=== PATIENT | female | born 1950 | race Caucasian/White ===

== ENCOUNTER 2022-02-19 00:16 | Inpatient (IN) | payer MEDICARE, OTHER ==
[~2022-02-19] VITALS: Ht 154.9 cm; Wt 51.7 kg
[2022-02-19] MEDS ORDERED: MEMA10TA PO ×2 (01:13→17:51)
[2022-02-19] MEDS ORDERED: QUET50TA PO (01:13)
[2022-02-19] MEDS ORDERED: LEVO75TA7 PO (01:13)
[2022-02-19] MEDS ORDERED: ACET-2154 PO (01:13)
[2022-02-19] MEDS ORDERED: DONE10TA44 PO (01:13)
[2022-02-19] MEDS ORDERED: ATOR80TA PO (01:13)
[2022-02-19] MEDS ORDERED: ACET-73 PO (01:13)
--- NOTE | 2022-02-19 01:30 | NUR ---
Medically cleared by DR Ward.
[2022-02-19 01:41] LABS: HEMATOCRIT 37.2 % (31.2-41.9); MEAN CORPUSCULAR HEMOGLOBIN 31.4 uug (24.7-32.8); MEAN CORPUSCULAR VOLUME 92.3 fL (75.5-95.3); PLATELET COUNT (AUTO) 300 K/uL (179-408)
--- NOTE | 2022-02-19 01:50 | NUR ---
pt taken to CT
[2022-02-19 02:01] LABS: ETHANOL < 3 MG/DL (0-0)
--- NOTE | 2022-02-19 02:02 | NUR ---
pt returned from CT
[2022-02-19 02:09] LABS: CARBON DIOXIDE 26 mmol/L (21-32); CHLORIDE 110 mmol/L (98-107); CREATININE 1.1 mg/dL (0.6-1.3); GLUCOSE 92 mg/dL (74-106); POTASSIUM 3.5 mmol/L (3.5-5.1); UREA NITROGEN, BLOOD 17 mg/dL (7-18)
[2022-02-19 02:11] LABS: THYROID STIMULATING HORMONE 5.125 mIU/mL (0.358-3.740)
[2022-02-19 02:25] LABS: ACETAMINOPHEN 10.1 ug/mL (10-30); ALANINE AMINOTRANSFERASE 18 U/L (14-59); ALKALINE PHOSPHATASE 61 U/L (50-136); ASPARTATE AMINOTRANSFERASE 23 U/L (15-37); BILIRUBIN,DIRECT 0.2 mg/dL (0.0-0.2); BILIRUBIN,TOTAL 0.6 mg/dL (0.2-1.0); TOTAL PROTEIN, SERUM 6.6 g/dL (6.4-8.2)
[2022-02-19 02:57] LABS: *BILIRUBIN,URIN 2+ (NEGATIVE); *BLOOD, URINE 3+ (NEGATIVE); *CLARITY,URINE CLOUDY (CLEAR); *COLOR,URINE YELLOW (YELLOW); *KETONES,URINE 1+ (NEGATIVE); *UROBILINOGEN,URINE 0.2 E.U./dl (NORMAL); LEUKOCYTE ESTERASE ,URINE NEGATIVE (NEGATIVE); NITRITE, URINE NEGATIVE (NEGATIVE); PH,URINE 5.5 (5.0-8.0); UGLUCOSE NEGATIVE (NEGATIVE)
--- NOTE | 2022-02-19 03:02 | NUR ---
Gilbert from PET TEAM placed patient on 5150 hold.
[2022-02-19 03:04] LABS: BACTERIA,URINE FEW /HPF (NONE SEEN); RBC,URINE TNTC /HPF (0-3); SQUAMOUS EPITHELIAL CELL,UR MODERATE /HPF (NONE SEEN)
[2022-02-19 03:10] LABS: *AMPHETAMINE, URINE POSITIVE (NEGATIVE); *CANNABINOID, URINE NEGATIVE (NEGATIVE); *COCCAINE, URINE NEGATIVE (NEGATIVE); *OPIATE, URINE NEGATIVE (NEGATIVE); *PHENCYCLIDINE SCREEN,URINE NEGATIVE (NEGATIVE)
--- NOTE | 2022-02-19 03:50 | NUR ---
Transfered to [facility] via gurny with no distress noted.
[2022-02-19 04:18] VITALS: BP 105/53
[2022-02-19] MEDS ORDERED: MAG HYDROX/AL HYDROX/SIMETH 30 ML LIQUID UDC PO PRN (04:30)
[2022-02-19] MEDS ORDERED: MAGNESIUM HYDROXIDE 30 ML LIQUID UDC PO PRN (04:30)
--- NOTE | 2022-02-19 05:00 | NUR ---
Admitted approx one hour earlier 71 years old female from [facility] on a 5150 for GD and DTO. according to the hold, patient was aggressive and striking at staff and residents. She is confused and she keeps repeating information and asking same question all over again. she thinks that she is in the baseman of her home. Her hold will on 02/22/22 at 0249. Upon admission, patient was noted A/O x 1. calm and cooperative with admission process except for she refused to sign the paper because she was too tired. she is able to ambulate with steady gait and able to make her needs known. patient was given her advisement and was advise of her hold. Patient does not recall why she is here. she was also given the booklet of patient's right for mental health facilities. Patient is under the care of dr Thompson. Patient was advise of unit rules. Dr Crawley was notified of the admission and to reconciled her medications. will continue to monitor Q15 min checks.
[2022-02-19] MEDS: LEVOTHYROXINE SODIUM 75 MCG TABLET PO SCH (07:28)
[2022-02-19 07:30] VITALS: BP 94/55
[2022-02-19] MEDS ORDERED: ACETAMINOPHEN 325 MG TABLET-SA PATIENTS-PAIN ONLY PO PRN (07:30)
--- NOTE | 2022-02-19 09:00 | NUR ---
UA result relayed to .
[2022-02-19] MEDS: DIVALPROEX SPRINKLE 125 MG CAP.SPRINK PO SCH ×3 (11:16→16:47)
[2022-02-19] MEDS ORDERED: FLUOXETINE HCL 10 MG CAPSULE PO SCH ×2 (13:00→14:00)
[2022-02-19 15:08] VITALS: BP 98/60
[2022-02-19] MEDS: ACETAMINOPHEN 325 MG TABLET PO PRN (17:32)
--- NOTE | 2022-02-19 17:48 | NUR ---
patient is AAO x1 to herself with poor impulse control at times, gets easily irritable when redirected, argumentative at times, paranoid behavior and pressure speech .compliant with all po medication, unable to formulate a viable plan for self care, continue to monitor for safety, continue with treatment plan.
[2022-02-19] MEDS ORDERED: ASPI81TA31 PO (17:49)
[2022-02-19] MEDS ORDERED: ROSU20TA2 PO (17:49)
[2022-02-19] MEDS ORDERED: POTA-194 PO (17:49)
[2022-02-19] MEDS: ATORVASTATIN 40 MG TABLET PO SCH (20:12)
[2022-02-19] MEDS ORDERED: ATORVASTATIN 40 MG TABLET PO SCH ×2 (21:00)
[2022-02-19] MEDS ORDERED: risperiDONE 0.25 MG TABLET PO SCH (21:00)
[2022-02-19] MEDS ORDERED: Medication Not On Formulary EA (Atorvastatin Calcium (Lipitor) 80 MG) PO SCH (21:00)
[2022-02-19] MEDS: TEMAZEPAM 7.5 MG CAPSULE PO PRN (21:12)
[2022-02-19 21:25] VITALS: BP 105/53
--- NOTE | 2022-02-20 03:46 | NUR ---
Received patient in bed. Awake and alert, but forgetful and paranoid. Angry and unable to engage in a meaningful conversation. The patient is condescending and argumentative over the littlest things. Safety Stratiges are in place and reorientation is ongoing.
[2022-02-20] MEDS: LEVOTHYROXINE SODIUM 75 MCG TABLET PO SCH (06:08)
[2022-02-20 07:30] VITALS: BP 111/57
[2022-02-20] MEDS: POTASSIUM CHLORIDE 20 MEQ POWDER PACKET PO SCH (08:46)
[2022-02-20] MEDS: LORAZEPAM 0.5 MG TABLET PO PRN (08:46)
[2022-02-20] MEDS: DIVALPROEX SPRINKLE 125 MG CAP.SPRINK PO SCH ×3 (08:46→16:28)
[2022-02-20] MEDS: ASPIRIN 81 MG TAB.CHEW PO SCH (08:46)
[2022-02-20] MEDS: risperiDONE 0.25 MG TABLET PO SCH ×2 (09:15→16:28)
--- NOTE | 2022-02-20 14:49 | NUR ---
HANH Initial Discharge Note: Pt's current residence is at [address] [address] ([phone]). Per Yancy ([phone]), the facility stated pt cannot stay at their facility under her current condition. HANH will continue to stay in Contact with Zulma and Rubi at the facility regarding pt's return upon discharge. Yancy stated she is agreeable to an alternative chcf facility or memory care for the pt's continuation of care upon discharge. HANH will continue to work with pt, family and MD to ensure a safe and proper discharge plan.
--- NOTE | 2022-02-20 16:07 | NUR ---
received patient is AAO x1 to herself with poor impulse control at times, gets easily irritable when redirected, argumentative at times, paranoid behavior and pressure speech .compliant with all po medication, refused breakfast and lunch .unable to formulate a viable plan for self care, continue to monitor for safety, continue with treatment plan.
[2022-02-20] MEDS: ACETAMINOPHEN 325 MG TABLET PO PRN (16:29)
[2022-02-20 16:48] VITALS: BP 124/57
[2022-02-20] MEDS: ATORVASTATIN 40 MG TABLET PO SCH (20:20)
[2022-02-21] MEDS: LORAZEPAM 0.5 MG TABLET PO PRN (05:51)
--- NOTE | 2022-02-21 06:00 | NUR ---
GPS NOTES: Received patient in her room, awake, A&Ox1. Patient is angry and yelling at everybody that approached her. Very paranoid, delusional and accusatory. Patient is non-directable, non-compliant with medication with the medical technical writer. Defiant with care. Pose threat to others by striking when attempt to provide her care. Incontinent and needs assistance with ADL's. Bed bath provided. Patient kept clean and dry. Offered fluids and snacks. Frequenrt monitoring observed, safety measures in place at all times.
[2022-02-21] MEDS: LEVOTHYROXINE SODIUM 75 MCG TABLET PO SCH (06:08)
[2022-02-21 07:01] VITALS: BP 137/84
[2022-02-21] MEDS: DIVALPROEX SPRINKLE 125 MG CAP.SPRINK PO SCH ×3 (08:14→16:21)
[2022-02-21] MEDS: ASPIRIN 81 MG TAB.CHEW PO SCH (08:14)
[2022-02-21] MEDS: POTASSIUM CHLORIDE 20 MEQ POWDER PACKET PO SCH (08:14)
[2022-02-21] MEDS: risperiDONE 0.25 MG TABLET PO SCH ×2 (08:15→16:21)
[2022-02-21 16:59] VITALS: BP 98/43
[2022-02-21] MEDS: ATORVASTATIN 40 MG TABLET PO SCH (20:04)
[2022-02-21] MEDS: TEMAZEPAM 7.5 MG CAPSULE PO PRN (20:04)
[2022-02-21 20:26] VITALS: BP 122/61
[2022-02-22] MEDS: LEVOTHYROXINE SODIUM 75 MCG TABLET PO SCH (06:09)
[2022-02-22 07:45] VITALS: BP 100/48
[2022-02-22] MEDS: ASPIRIN 81 MG TAB.CHEW PO SCH (08:23)
[2022-02-22] MEDS: POTASSIUM CHLORIDE 20 MEQ POWDER PACKET PO SCH (08:23)
[2022-02-22] MEDS: DIVALPROEX SPRINKLE 125 MG CAP.SPRINK PO SCH ×3 (08:24→16:56)
[2022-02-22] MEDS: risperiDONE 0.25 MG TABLET PO SCH ×2 (08:24→17:00)
[2022-02-22] MEDS: ENSURE ENLIVE (VAN) 240 ML LIQUID PO SCH ×2 (12:19→17:01)
[2022-02-22 15:29] VITALS: BP 116/59
--- NOTE | 2022-02-22 16:10 | NUR ---
received patient is confused and disoriented to herself with poor impulse control at times, gets easily irritable when redirected, argumentative at times, paranoid behavior and pressure speech .compliant with all po medication, refused breakfast and lunch . visited by son at bedside encouraged for po intake .unable to formulate a viable plan for self care, continue to monitor for safety, continue with treatment plan.
[2022-02-22 19:33] VITALS: BP 100/46
[2022-02-22] MEDS: ATORVASTATIN 40 MG TABLET PO SCH (21:31)
[2022-02-22] MEDS: TEMAZEPAM 7.5 MG CAPSULE PO PRN (23:01)
--- NOTE | 2022-02-23 00:45 | NUR ---
GPS: Pt.is asleep at this time during rounds. Remains confused,disoriented,paranoid and suspicious. Took bedtime med.earlier with little persuasion from staff. Poor insight to present situation. No combative behavior noted. Encouraged to fully cooperate with staff providing care. Fall precautions observed.
[2022-02-23] MEDS: LORAZEPAM 0.5 MG TABLET PO PRN ×2 (01:19→20:33)
[2022-02-23] MEDS ORDERED: REMEDY ESSENTIAL ZINC PASTE 113 GM TOP PRN (05:00)
[2022-02-23] MEDS: LEVOTHYROXINE SODIUM 75 MCG TABLET PO SCH (06:19)
[2022-02-23 07:33] VITALS: BP 109/50
[2022-02-23] MEDS: risperiDONE 0.25 MG TABLET PO SCH ×2 (08:24→17:03)
[2022-02-23] MEDS: POTASSIUM CHLORIDE 20 MEQ TAB.PRT.SR PO SCH (08:26)
[2022-02-23] MEDS: DIVALPROEX SPRINKLE 125 MG CAP.SPRINK PO SCH ×3 (08:29→17:03)
[2022-02-23] MEDS: ASPIRIN 81 MG TAB.CHEW PO SCH (08:29)
[2022-02-23] MEDS: ENSURE ENLIVE (VAN) 240 ML LIQUID PO SCH ×3 (08:30→17:04)
[2022-02-23 09:46] LABS: HEMATOCRIT 43.8 % (31.2-41.9); MEAN CORPUSCULAR HEMOGLOBIN 31.3 uug (24.7-32.8); MEAN CORPUSCULAR VOLUME 98.7 fL (75.5-95.3); PLATELET COUNT (AUTO) 185 K/uL (179-408)
[2022-02-23 10:01] LABS: BILIRUBIN,TOTAL 0.7 mg/dL (0.2-1.0); CREATININE 0.8 mg/dL (0.6-1.3); MAGNESIUM 2.3 mg/dL (1.8-2.4); POTASSIUM 3.2 mmol/L (3.5-5.1); TOTAL PROTEIN, SERUM 6.7 g/dL (6.4-8.2)
[2022-02-23 15:49] VITALS: BP 116/67
[2022-02-23] MEDS: ATORVASTATIN 40 MG TABLET PO SCH (20:28)
[2022-02-23 22:09] VITALS: BP 117/61
[2022-02-24] MEDS: LEVOTHYROXINE SODIUM 75 MCG TABLET PO SCH (06:11)
[2022-02-24 08:00] VITALS: BP 109/44
[2022-02-24] MEDS: ASPIRIN 81 MG TAB.CHEW PO SCH (09:00)
[2022-02-24] MEDS: risperiDONE 0.25 MG TABLET PO SCH ×2 (09:01→16:58)
[2022-02-24] MEDS: POTASSIUM CHLORIDE 20 MEQ TAB.PRT.SR PO SCH (09:01)
[2022-02-24] MEDS: DIVALPROEX SPRINKLE 125 MG CAP.SPRINK PO SCH ×3 (09:01→17:01)
[2022-02-24] MEDS: ENSURE ENLIVE (VAN) 240 ML LIQUID PO SCH ×3 (09:02→18:00)
--- NOTE | 2022-02-24 09:38 | NUR ---
HANH Discharge Update: HANH contacted Zulma ([phone]) [place] [address] ([phone]) who stated that she will contact this account underwriter after speaking to the DON with an update for the patient's return. Per pt's daughter, Yancy ([phone]), she is agreeable for the pt to return to a snf facility per Dr. Thompson and HANH's referral.
--- NOTE | 2022-02-24 15:02 | NUR ---
Receive patient sleeping in her room. A/O X 2 to person. Pt. is depressed, withdrawn, does not engage in verbal approach, uncooperative with nursing care at times, compliant with medications. "Please close all blinds and don't turn on the lights" Requires total care. Pt. is encourage to vent feelings and emotions. Fall and safety precautions implemented.
[2022-02-24 16:00] VITALS: BP 109/51
[2022-02-24 20:04] VITALS: BP 111/66
[2022-02-24] MEDS: ATORVASTATIN 40 MG TABLET PO SCH (20:06)
[2022-02-24] MEDS: TEMAZEPAM 7.5 MG CAPSULE PO PRN (20:06)
--- NOTE | 2022-02-25 05:24 | NUR ---
Slept 7.0 hours today. Calm and cooperative. No complaint presented. Remain on bed all the time. Made comfortable.
[2022-02-25] MEDS: LEVOTHYROXINE SODIUM 75 MCG TABLET PO SCH (05:44)
[2022-02-25 07:30] VITALS: BP 106/48
[2022-02-25] MEDS: ASPIRIN 81 MG TAB.CHEW PO SCH (08:55)
[2022-02-25] MEDS: DIVALPROEX SPRINKLE 125 MG CAP.SPRINK PO SCH ×3 (08:57→17:00)
[2022-02-25] MEDS: POTASSIUM CHLORIDE 20 MEQ TAB.PRT.SR PO SCH (08:57)
[2022-02-25] MEDS: risperiDONE 0.25 MG TABLET PO SCH ×2 (08:57→12:35)
[2022-02-25] MEDS: ENSURE ENLIVE (VAN) 240 ML LIQUID PO SCH ×3 (08:58→17:25)
--- NOTE | 2022-02-25 13:15 | NUR ---
Dr. Thompson was notified about patient's Valproic Acid level of 101 today at 13:03. ordered Depakote 125 mg PO once for 17:00 schedule medication, which is half of patient's normal dose.
--- NOTE | 2022-02-25 15:28 | NUR ---
Receive patient sleeping in her room. A/O X 1 to person. Pt. is argumentative, suspicious, accusatory "Why are you doing this to me?" "You are hurting me, stop!" "Don't help me, I don't need you!". Patient does not engage in conversations or group activities. Emotional support provided. Fall and safety precautions implemented.
[2022-02-25 16:00] VITALS: BP 103/55
[2022-02-25] MEDS ORDERED: DIVALPROEX 125 MG TABLET.DR PO ONE (17:00)
[2022-02-25] MEDS: risperiDONE 0.5 MG TABLET PO SCH (17:24)
[2022-02-25 20:04] VITALS: BP 103/52
[2022-02-25] MEDS: ATORVASTATIN 40 MG TABLET PO SCH (20:46)
[2022-02-25] MEDS: LORAZEPAM 0.5 MG TABLET PO PRN (20:46)
[2022-02-26] MEDS: LEVOTHYROXINE SODIUM 75 MCG TABLET PO SCH (06:17)
[2022-02-26 07:30] VITALS: BP 110/46
[2022-02-26] MEDS: POTASSIUM CHLORIDE 20 MEQ TAB.PRT.SR PO SCH (08:27)
[2022-02-26] MEDS: risperiDONE 0.25 MG TABLET PO SCH (08:27)
[2022-02-26] MEDS: DIVALPROEX SPRINKLE 125 MG CAP.SPRINK PO SCH (08:28)
[2022-02-26] MEDS: ASPIRIN 81 MG TAB.CHEW PO SCH (08:29)
[2022-02-26] MEDS: ENSURE ENLIVE (VAN) 240 ML LIQUID PO SCH ×3 (08:29→17:41)
[2022-02-26] MEDS: risperiDONE 0.5 MG TABLET PO SCH ×2 (12:23→17:41)
[2022-02-26] MEDS ORDERED: risperiDONE 0.25 MG TABLET PO SCH (13:00)
--- NOTE | 2022-02-26 13:47 | NUR ---
Dr. Thompson was informed at 13:03 about critical lab of 127 Valproic Acid for this patient, and decided to DC all Depakote orders.
[2022-02-26 15:12] LABS: HEMATOCRIT 45.4 % (31.2-41.9); MEAN CORPUSCULAR HEMOGLOBIN 31.3 uug (24.7-32.8); MEAN CORPUSCULAR VOLUME 95.2 fL (75.5-95.3); PLATELET COUNT (AUTO) 340 K/uL (179-408)
[2022-02-26 15:15] LABS: CARBON DIOXIDE 26 mmol/L (21-32); CHLORIDE 104 mmol/L (98-107); CREATININE 0.9 mg/dL (0.6-1.3); GLUCOSE 125 mg/dL (74-106); POTASSIUM 3.9 mmol/L (3.5-5.1); UREA NITROGEN, BLOOD 22 mg/dL (7-18)
[2022-02-26 15:21] LABS: ALANINE AMINOTRANSFERASE 11 U/L (14-59); ALKALINE PHOSPHATASE 63 U/L (50-136); ASPARTATE AMINOTRANSFERASE 15 U/L (15-37); BILIRUBIN,TOTAL 0.3 mg/dL (0.2-1.0); TOTAL PROTEIN, SERUM 7.5 g/dL (6.4-8.2)
[2022-02-26 16:00] VITALS: BP 113/44
[2022-02-26] MEDS ORDERED: DIVALPROEX SPRINKLE 125 MG CAP.SPRINK PO SCH (17:00)
[2022-02-26] MEDS: ATORVASTATIN 40 MG TABLET PO SCH (20:52)
[2022-02-26] MEDS: TEMAZEPAM 7.5 MG CAPSULE PO PRN (20:52)
[2022-02-26 21:24] VITALS: BP 123/63
--- NOTE | 2022-02-27 05:32 | NUR ---
GPS NOTES: Received patient in his room, awake in bed, responsive to name. Confused and needs constant re orientation with reality. Patient is isolative and withdrawn. Patient resistive with nursing care, suspicious whenever attempt to provide care. Compliant with medications. Prn temazepam given w/ effectivity. patient slept well. Frequent rounding done.
[2022-02-27] MEDS: LEVOTHYROXINE SODIUM 75 MCG TABLET PO SCH (06:11)
[2022-02-27 07:30] VITALS: BP 123/62
[2022-02-27] MEDS: POTASSIUM CHLORIDE 20 MEQ TAB.PRT.SR PO SCH (08:34)
[2022-02-27] MEDS: risperiDONE 0.5 MG TABLET PO SCH ×3 (08:34→16:55)
[2022-02-27] MEDS: ASPIRIN 81 MG TAB.CHEW PO SCH (08:34)
[2022-02-27] MEDS: ENSURE ENLIVE (VAN) 240 ML LIQUID PO SCH ×3 (08:35→16:55)
[2022-02-27] MEDS ORDERED: DIVALPROEX SPRINKLE 125 MG CAP.SPRINK PO SCH (09:00)
--- NOTE | 2022-02-27 14:04 | NUR ---
HANH Family Contact: HANH contacted pt's daughter, Yancy ([phone]) and discussed pt's discharge plan. HANH stated pt is not accepted to return to [facility] ([phone]) located at [address] [place] [address] due to her behavior. HANH stated that this telegraphic typewriter operator referred pt to their sister facility at [facility] located at [address] [place] [address] ([phone]) and awaiting acceptance for discharge on Wednesday from [facility] in admissions. Yancy is aware and agreeable. HANH will continue to follow-up with [facility] and update Yancy and with updates prior to discharge.
--- NOTE | 2022-02-27 15:39 | NUR ---
Received patient sleeping in her room. A/O X 1 - 2 to person. Patient is accusatory "Why are you doing this to me? Stop hurting me" Pt. is depressed, withdrawn, isolative, angry. Requires total assistance with ADL. Reassurance given. Fall and safety precautions implemented.
[2022-02-27 16:00] VITALS: BP 111/61
[2022-02-27 19:59] VITALS: BP 109/58
--- NOTE | 2022-02-27 20:30 | NUR ---
RECEIVED PATIENT IN HER BED. SHE IS NOTED AWAKE A/O X 1. SHE IS CALM AND PLEASANT UPON APPROACHED. PATIENT NOTED FORGETFUL. SHE IS NOTED ISOLATIVE AND WITHDRAWN. SHE IS A POOR HISTORIAN. SHE HAS POOR INSIGHT INTO HIS ADMISSION TO MHU. SHE WAS GIVEN PO FLUIDS AND SNACKS. HER V/S ARE STABLE. SHE IS REASSURED FOR HER SAFETY. SAFETY AND FALL PRECAUTION ARE IN PLACE. WILL CONTINUE TO MONITOR.
[2022-02-27] MEDS: ATORVASTATIN 40 MG TABLET PO SCH (21:20)
[2022-02-28] MEDS: LEVOTHYROXINE SODIUM 75 MCG TABLET PO SCH (06:02)
[2022-02-28 08:14] VITALS: BP 109/52
[2022-02-28] MEDS: ASPIRIN 81 MG TAB.CHEW PO SCH (08:21)
[2022-02-28] MEDS: POTASSIUM CHLORIDE 20 MEQ TAB.PRT.SR PO SCH (08:21)
[2022-02-28] MEDS: risperiDONE 0.5 MG TABLET PO SCH ×3 (08:21→16:24)
[2022-02-28] MEDS: ENSURE ENLIVE (VAN) 240 ML LIQUID PO SCH ×3 (08:22→16:24)
[2022-02-28 16:35] VITALS: BP 123/69
[2022-02-28 20:00] VITALS: BP 129/55
[2022-02-28] MEDS: LORAZEPAM 0.5 MG TABLET PO PRN (20:41)
[2022-02-28] MEDS: ATORVASTATIN 40 MG TABLET PO SCH (20:41)
--- NOTE | 2022-02-28 20:45 | NUR ---
RECEIVED PATIENT IN HER ROOM IN BED. SHE IS NOTED A/O X 1. SHE IS ABLE TO MAKE HER NEEDS KNOWN. SHE IS RESTLESS. SHE IS NOTED WITH DISORGANIZED SPEECH. ALL HER NEEDS WERE MET. ATIVAN 0.5MG PO PRN WAS GIVEN. SHE WAS ALSO GIVEN PO FLUIDS AND SNACKS, SHE IS REASSURED FOR HER SAFETY, SAFETY AND FALL PRECAUTIONS ARE IN PLACE. V/S STABLE. SHE IS IN NO DISTRESS. WILL CONTINUE TO MONITOR.
[2022-02-28] MEDS: TEMAZEPAM 7.5 MG CAPSULE PO PRN (22:18)
[2022-03-01] MEDS: LEVOTHYROXINE SODIUM 75 MCG TABLET PO SCH (06:46)
[2022-03-01 07:30] VITALS: BP 97/46
[2022-03-01] MEDS: ASPIRIN 81 MG TAB.CHEW PO SCH (08:42)
[2022-03-01] MEDS: POTASSIUM CHLORIDE 20 MEQ TAB.PRT.SR PO SCH (08:42)
[2022-03-01] MEDS: risperiDONE 0.5 MG TABLET PO SCH ×3 (08:42→17:09)
[2022-03-01] MEDS: ENSURE ENLIVE (VAN) 240 ML LIQUID PO SCH (08:43)
--- NOTE | 2022-03-01 08:45 | NUR ---
UP ON THE CHAIR GETS EASILY IRRITATED BUT IS COMPLIANT WITH MEDICATIONS AND CARE WILL CONTINUE TO OBSERVE.
[2022-03-01] MEDS: GLUCERNA SHAKE 237 ML CAN PO SCH ×2 (11:57→17:09)
[2022-03-01 16:00] VITALS: BP 102/66
[2022-03-01 20:19] VITALS: BP 107/51
[2022-03-01] MEDS: ATORVASTATIN 40 MG TABLET PO SCH (21:06)
[2022-03-01] MEDS: LORAZEPAM 0.5 MG TABLET PO PRN (21:06)
[2022-03-01] MEDS: ACETAMINOPHEN 325 MG TABLET PO PRN (21:11)
[2022-03-02] MEDS: LEVOTHYROXINE SODIUM 75 MCG TABLET PO SCH (06:01)
[2022-03-02 07:46] VITALS: BP 105/47
[2022-03-02] MEDS: POTASSIUM CHLORIDE 20 MEQ TAB.PRT.SR PO SCH (08:54)
[2022-03-02] MEDS: ASPIRIN 81 MG TAB.CHEW PO SCH (08:54)
[2022-03-02] MEDS: risperiDONE 0.5 MG TABLET PO SCH (08:54)
[2022-03-02] MEDS: GLUCERNA SHAKE 237 ML CAN PO SCH (08:54)
--- NOTE | 2022-03-02 09:52 | NUR ---
SW Discharge Note: Pt will be discharged to [facility] located at [address] [place] [address] ([phone]) via ambulance transportation at 11AM. Pt is aware and agreeable with discharge plans. Pt is alert and oriented x2 and is unable to plan for self-care at this time. However, pt is willing to accept care at SNF. Pts daughter, Yancy ([phone]) is aware and agreeable with the discharge plan. Pt denies any suicidal or homicidal ideation. Pt will follow-up at the facility with Psychiatrist, Dr. Thompson and Insurance Claims Processor, Dr. Kirby. Pt presents with calm mood and congruent affect. PHARMACY: [facility]: ([phone]) [address] [facility], [address], [place] [address].
--- NOTE | 2022-03-02 12:00 | NUR ---
GPS: Nursing Notes: Discharge Notes: Patient is awake and responding to her name, cooperative with nursing care, compliant with her medications, denies SI/HI, denies AH/VH, denies pain or discomfort, denies SOB, discharge to [facility] at [address] [place] [address] , report given to facility's nurse - CASEY Macedo driver supervisor, took all her belongings with her, transported to facility via ambulance. Patient's daughter - Yancy informed of discharge by social service coordinator. Patient will follow up with Dr. Thompson (psychiatrist) and Dr. Kirby (felt coverer) at the facility for aftercare.
== END 2022-03-02 12:00 | DRG 885 ==
LOC: ER 00:26 → GPS 03:50
PROVIDERS: ADMIT Psychiatry & Neurology Psychosomatic Medicine; ATTEND Internal Medicine
DX: F29 Unspecified psychosis not due to a substance or known physiological condition (principal); F01.50 Vascular dementia, unspecified severity, without behavioral disturbance, psychotic disturbance, mood disturbance, and anxiety; E03.9 Hypothyroidism, unspecified; Z79.890 Hormone replacement therapy; E78.5 Hyperlipidemia, unspecified; F32.9 Major depressive disorder, single episode, unspecified; F41.9 Anxiety disorder, unspecified; Z73.6 Limitation of activities due to disability; M62.81 Muscle weakness (generalized); Z20.822 Contact with and (suspected) exposure to COVID-19
CPT/HCPCS: 36415; 70450; 71045; 80164; 83735; 84443; 84484; 85025; 85730; 87086; 93005; 97161; A4663; G0480